=== PATIENT | female | born 1995 | race Two or more races ===

== ENCOUNTER 2019-10-30 21:12 | Observation (INO) | payer BC, MEDICAID ==
[~2019-10-30] VITALS: Ht 167.6 cm; Wt 111.1 kg
[2019-10-30] MEDS ORDERED: LACTATED RINGER'S 1,000 ML IV ONE (21:45)
[2019-10-30] MEDS ORDERED: TERBUTALINE SULFATE 1 MG/ML 1ML VIAL SC SCH (22:00)
[2019-10-30] MEDS ORDERED: TERBUTALINE SULFATE 1 MG/ML 1ML VIAL SC ONE (22:05)
== END 2019-10-30 23:00 | disposition home or self-care (01) | DRG 833 ==
LOC: LDRP 21:12
PROVIDERS: ADMIT Obstetrics & Gynecology; ATTEND Obstetrics & Gynecology
DX: O60.03 Preterm labor without delivery, third trimester (principal); O30.003 Twin pregnancy, unspecified number of placenta and unspecified number of amniotic sacs, third trimester; O99.513 Diseases of the respiratory system complicating pregnancy, third trimester; J45.909 Unspecified asthma, uncomplicated; O09.33 Supervision of pregnancy with insufficient antenatal care, third trimester; Z86.2 Personal history of diseases of the blood and blood-forming organs and certain disorders involving the immune mechanism; Z3A.32 32 weeks gestation of pregnancy; Z86.32 Personal history of gestational diabetes; Z91.040 Latex allergy status
CPT/HCPCS: 59025; 96372; G0378; J3105; 96365; 96366

== ENCOUNTER 2020-07-09 10:32 | Emergency (ER) | payer MEDICAID ==
[~2020-07-09] VITALS: Ht 167.6 cm; Wt 81.6 kg
[2020-07-09 10:39] VITALS: BP 140/72
[2020-07-09 10:54] LABS: Urine Bacteria NONE SEEN /hpf (None Seen); Urine Blood Negative /uL (Negative); Urine Mucus FEW (None Seen); Urine Specific Gravity 1.021 (1.001-1.035); Urine WBC 1 /hpf (0 - 5)
[2020-07-09] MEDS ORDERED: KETOROLAC TROMETH 60MG/2ML VIAL IM ONE (11:15)
== END 2020-07-09 11:57 | disposition home or self-care (01) ==
LOC: ER 10:32
DX: M54.41 Lumbago with sciatica, right side (principal); N30.00 Acute cystitis without hematuria; Z91.040 Latex allergy status
CPT/HCPCS: 81001; 96372; 99283; J1885

== ENCOUNTER 2022-10-07 20:20 | Emergency (ER) | payer MEDICAID ==
[~2022-10-07] VITALS: Ht 167.6 cm; Wt 86.3 kg
[2022-10-07] MEDS ORDERED: HYDROcodone-ACET 10/325MG TAB PO ONE (20:30)
[2022-10-07] MEDS ORDERED: IBUP800T27 PO (23:45)
[2022-10-07] MEDS ORDERED: CYCL-839 PO (23:45)
[2022-10-07] MEDS ORDERED: BAC09TP TOP (23:46)
[2022-10-07 23:59] VITALS: BP 119/72
[2022-10-08] MEDS ORDERED: CYCLOBENZAPRINE HCL 10 MG TAB PO ONE (00:30)
[2022-10-08] MEDS ORDERED: BACITRACIN TOP OINT 1 UD PKG TOP ONE (00:30)
== END 2022-10-08 00:26 | disposition home or self-care (01) ==
LOC: ER 20:23
DX: S63.91XA Sprain of unspecified part of right wrist and hand, initial encounter (principal); S00.83XA Contusion of other part of head, initial encounter; M62.838 Other muscle spasm; M25.561 Pain in right knee; R94.31 Abnormal electrocardiogram [ECG] [EKG]; Z91.040 Latex allergy status; V86.59XA Driver of other special all-terrain or other off-road motor vehicle injured in nontraffic accident, initial encounter; Y93.89 Activity, other specified; Y92.89 Other specified places as the place of occurrence of the external cause; Y99.8 Other external cause status
CPT/HCPCS: 29125; 70450; 70486; 73080; 73130; 73562; 93005